=== PATIENT | male | born 1975 | race Caucasian/White ===

== ENCOUNTER 2023-11-11 07:11 | Emergency (ER) | payer SELFPAY ==
[2023-11-11 07:11] VITALS: BP 134/91; PULSE 137; RESP 22; TEMP 35.9; O2SAT 97; BMI 31.7
--- NOTE | 2023-11-11 07:20 | CT_ITS ---
ACR Level 3 findings have been noted. An addendum which confirms receipt of the report will follow. HISTORY: diffuse abdominal pain. TECHNIQUE: Helically acquired images were obtained of the abdomen and pelvis after the intravenous administration of 100 mL Isovue-370. A radiation dose optimization technique was used for this scan. 444 images. COMPARISON: None. FINDINGS: LOWER CHEST: Dependent atelectasis with mild left pleural effusion. 6 mm right lower lobe juxtapleural nodule. Fleischner Society Guidelines suggest no follow-up is necessary for patients with a low or high risk of malignancy. BOWEL: Small diverticulum of the horizontal portion of the duodenum. Bowel including appendix nondilated. Colonic diverticulosis with limited evaluation for mild acute diverticulitis. Generalized abdominal edema. PERITONEUM: Mild ascites with mesenteric edema. LIVER: Mild fatty infiltration. GALLBLADDER/BILIARY TREE: 1-2 mm calcified gallstones. SPLEEN: Homogeneous and nonenlarged. PANCREAS: Severe peripancreatic edema with approximately 50% of the distal body and tail enlarged and nonenhancing. No organized peripancreatic fluid collection. 8 mm filling defect in the splenic vein. 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 Mild hyperdensity in the distal pancreatic bed, which may represent hemorrhage. KIDNEYS: Subcentimeter cysts bilaterally. 2 mm right lower pole calculus. 2 to 3 mm left renal calculi. No hydronephrosis. ADRENAL GLANDS: No nodules. VESSELS: No abdominal aortic ectasia. Mild atherosclerosis. Small retroperitoneal lymph nodes. PELVIC ORGANS: Mild prostate calcifications. ABDOMINAL WALL: Small fat-containing right inguinal hernia. BONES: Intact. 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 Mild ascites. Cholelithiasis. Hepatic steatosis. Nonobstructing bilateral renal calculi. Electronically Signed: Nori aT MD at 9:01 EDT ,
--- NOTE | 2023-11-11 07:22 | ED.VIS.GI ---
HPI HPI - GI History of Present Illness Chief Complaint: Abd Pain Informant: patient Abdominal Pain/Flank Pain Onset: Today and Yesterday Context: Gradual Onset Timing: Continuous Quality: Aching Location: Diffuse Current Severity: Moderate Maximum Severity: Severe Worsened by: Nothing Relieved by: Nothing Nausea/Vomiting/Emesis GI Symptom: Positive for Nausea and Vomiting Onset: Today and Yesterday Severity: Mild Diarrhea/Melena/Hematochezia GI Symptom: Negative for Diarrhea, Melena or Hematochezia Associated Symptoms Associated Symptoms: Positive for - (Difficulty urinating today.); Negative for Dysuria, Frequency, Hematuria or Urgency Narrative Narrative: 48-year-old male no seen past medical or surgical history. No prior abdominal surgeries. Yesterday morning around 5 AM started having suprapubic abdominal pain now is diffuse. He had nausea and vomiting yesterday and dry heaves today. No fever. No dysuria. No hematuria. No history of BPH. Denies any recent weight loss. Prior similar symptoms: No Recent Illness/Hospitalization: No PFSH PFSH Medical History no medical history no medical history Home Medications ?Medication ?Instructions ?Recorded ?Last Taken ?Type NK 11/11/23 Unknown History Allergy/AdvReac Type Severity Reaction Status Date / Time No Known Allergies Allergy Verified 11/11/23 07:58 Surgical History no surgical history no surgical history Social History Smoking Status: Never smoker ROS ROS ED ROS Narrative Diffuse abdominal pain. Nausea and vomiting. Review of Systems ROS Unobtainable: Denies due to encephalopathy Constitutional Constitutional ED: Denies chills or fever(s) ENT ENT ED: Denies ear pain Cardiovascular Cardiovascular: Denies chest pain Respiratory/Chest Respiratory/Chest: Denies cough or dyspnea Gastrointestinal Gastrointestinal: Reports abdominal pain, nausea and vomiting; Denies constipation, diarrhea or melena Genitourinary Genitourinary ED: Reports other Details: Difficulty urinating today. ; Denies dysuria or hematuria Musculoskeletal Musculoskeletal: Denies arthralgias Integumentary Denies abscess or Abrasions Neurologic Neurologic: Denies headache(s) Psychiatric Psychiatric: Denies anxiety Endocrine Endocrinology: Denies polydipsia Hematologic/Lymphatic Hematologic/Lymphatic: Denies easy bleeding Allergic/Immunologic Allergic/Immunologic ED: Denies mouth swelling, tongue swelling or urticaria EXAM Physical Exam Narrative Exam Narrative: 48-year-old male complaining of abdominal pain. Vital signs are stable and he is tachycardic at 137. H EENT exam unremarkable. Missing teeth. Neck nontender no lymphadenopathy. Lungs clear to auscultation bilaterally. Heart regular rhythm tachycardia by 125. Chest wall and ribs nontender. Abdomen diffusely tender in all quadrants. No localizing tenderness. No hernia or mass. No distention or obstruction. No pulsatile mass. Not specifically tender in the right upper or right lower quadrant but diffusely over the entire abdomen. External exam unremarkable. Circumcised. No inguinal hernias noted. Moving all 4 extremities. Nontender no edema he is awake and alert. Answering questions following commands. No focal motor deficits. Const Vital Signs: 11/11/23 07:11 11/11/23 09:11 Temperature 96.6 F L Temperature Source Temporal Pulse Rate 137 H 98 Respiratory Rate 22 H 18 Blood Pressure 134/91 H 119/89 H Blood Pressure Mean 105 99 Pulse Ox 97 95 Oxygen Delivery Method Room Air Positive well nourished and well developed; Negative for cachectic, contractures or unkempt General Appearance ED: well developed; Negative for unkempt, cachectic, contractures, NAD or pallor Nutritional Appearance: Negative for cachectic HEENT Reports moist mucous membranes; Denies dry mucous membranes normocephalic and atraumatic; Negative for trauma or tenderness Mouth ED: No dry mucous membranes Mouth: No dry mucous membranes Eyes PERRL and EOMs intact bilaterally General Eye ED: Negative for pale conjunctiva or scleral icterus Neck no lymphadenopathy, supple and no JVD General: Negative for tenderness Carotids: Negative for other Lymph Lymphatic: Negative for other Resp normal respiratory effort and clear to auscultation bilaterally Effort and Inspection: Negative for respiratory distress Auscultation: Negative for rales, rhonchi, wheezes, diminished lung sounds or other Cardio regular rhythm, S1 normal heart sound, S2 normal heart sound and no murmurs; Negative for regular rate Rate: tachycardic GI non-distended and no masses; Negative for non-tender Inspection: Negative for abdominal distention Auscultation: normoactive bowel sounds Palpation: soft and tender; Negative for guarding, rigid, hernia, mass, pulsatile mass or rebound tenderness present Back/Spine no CVA tenderness General Back: Negative for CVA tenderness Cervical Spine: Negative for cervical spine tenderness Thoracic Spine / Upper Back: Negative for thoracic spinal tenderness Lumbar Spine / Lower Back: Negative for lumbar spinal tenderness Extremity full ROM General Extremety ED: Negative for edema or tenderness General Extremity: Negative for edema Neuro CN's II-XII intact bilaterally and moves all extremities Sensorium / Orientation: alert, oriented to person, oriented to place and oriented to time; Negative for orientation impaired, confused, lethargic or stuporous Motor Exam: strength 5/5 throughout Psych mental status grossly normal and thought process normal Appearance: Negative for unkempt Attitude: No agitated Mood & Affect: Negative for depressed, anxious or tearful Skin no wounds General Skin Exam: Negative for jaundice or pallor Lesions: no lesions Rashes: no rashes Trauma: Negative for abrasion Nails: Negative for discolored MDM MDM MDM Narrative Medical decision making narrative: 48-year-old male vital signs are stable he is afebrile and his tachycardia. Complaint diffuse abdominal pain difficulty urinating. This could be urinary retention versus many other causes of abdominal pain. CAT scan labs to be obtained. Bladder scan. He will receive IV morphine for pain and Zofran for nausea. Patient initially treated with morphine and Zofran related and cover his pain. He was then given Dilaudid his pain is improving on repeat exam at 9:30 AM. I discussed all the test results with both he and his . I spoke to our hospitalist given the patient's CAT scan shows necrotizing pancreatitis may or may not be secondary to gallstone pancreatitis. Also small amount of blood which is most likely from a necrotizing pancreatitis but they could not rule out from the splenic artery aneurysm they wanted him transferred. I have already spoken to [facility] transfer line I am awaiting them to okayed the transfer but they thought it would be possible to get him transferred today. Patient and his are aware of his diagnosis and need for transfer. He is stable. And his pain is improving with the Dilaudid. History & Record Review Discussion w/independent historian: Patient and Family Additional record(s) reviewed:: No prior records Lab Data Attestation: I reviewed the patient's lab results. Lab results narrative: CBC shows an elevated white count 22.9. H&H 18.6 and 54. Platelets 240. Electrolytes show gap 10. BUN 28 creatinine 1.58 with renal insufficiency. Glucose 195. Liver enzymes are mildly elevated with a total bilirubin 1.5. AST is 75. ALT 141. Alk phos is normal. Lipase is elevated at 1789 consistent with acute pancreatitis. Consistent with the CAT scan findings. Labs: Laboratory Results - last 24 hr 11/11/23 07:26 WBC 22.9 H RBC 6.26 H Hgb 18.6 H* Hct 54.6 H MCV 87.2 MCH 29.7 MCHC 34.1 RDW Std Deviation 41.6 RDW Coeff of Fabrice 13.1 Plt Count 240 MPV 9.3 Immature Gran % (Auto) 0.400 Neut % (Auto) 90.7 H Lymph % (Auto) 3.7 L [place] % (Auto) 4.9 Eos % (Auto) 0.0 Baso % (Auto) 0.3 Absolute Neuts (auto) 20.8 H Absolute Lymphs (auto) 0.85 Nucleated RBC % 0 Differential Comment SCANNED Diff Path Review May foll Sodium 136 Potassium 3.5 Chloride 100 Carbon Dioxide 26.0 Anion Gap 10 BUN 28 H Creatinine 1.58 H Estim Creat Clear Calc 63.13 Est GFR (MDRD) Af Amer 61 Est GFR (MDRD) Non-Af 50 L BUN/Creatinine Ratio 17.7 Glucose 195 H Calcium 8.0 L Total Bilirubin 1.50 H AST 75 H ALT 141 H Alkaline Phosphatase 103 Total Protein 7.1 Albumin 3.4 Globulin 3.7 Albumin/Globulin Ratio 0.9 Lipase 1789 H Radiography Diagnostic Testing: Clinical Impression(s) from Imaging Studies Abdomen/Pelvis CT 11/11/23 07:20 IMPRESSION: 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 Mild ascites. Cholelithiasis. Hepatic steatosis. Nonobstructing bilateral renal calculi. 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 Mild ascites. Cholelithiasis. Hepatic steatosis. Nonobstructing bilateral renal calculi. N.B. : Librado Jacobs MD, confirmed on 11/11/2023 09:05:03 (ET) that the healthcare facility has received the radiology report. Electronically Signed: Nori Ta MD at 9:01 EDT , Critical Care Time Critical Care Time: Yes Critical care time (excluding procedures): 30-74 minutes, Including time spent:, Discussing w/Patient &/or Family/Laboratory Equipment Installer, Discussing w/Consultants, Arranging Admission or Transfer, Performing Direct Patient Care at Bedside and - (35 minutes.) Discharge Plan Triage Chief Complaint: Abd Pain ED Provider: Librado Jacobs Dx/Rx/DC Orders Clinical Impression: Abdominal pain, Acute pancreatitis, Gallstones, Aneurysm of splenic artery, Hemorrhage intraabdominal, Leukocytosis Prescriptions: No Action NK Primary Care Provider: Care Physician,No Primary Referrals: NOT,DEFINED [Non-Staff] - Print Language: Macanese Disposition Disposition: Acute Care [facility]
[2023-11-11] MEDS: morphine 8 MG/ML Syringe IV (07:25)
[2023-11-11] MEDS: Ondansetron 4 MG/2 ML Vial IV (07:25)
[2023-11-11 07:33] LABS: Absolute Lymphocyte Count 0.85 X10^3/uL (0.83-4.51); Absolute Neutrophil Count 20.8 X10^3/uL (2.0-7.7); Basophil# 0.07 X10^3/uL; Basophil% 0.3 % (0-1); Hematocrit 54.6 % (40-54); Hemoglobin 18.6 g/dL (13.0-16.5); Lymphocyte # 0.85 X10^3/ul (0.83-4.51); Lymphocyte % 3.7 % (19-41); Mean Corpuscular Hgb 29.7 pg (27.0-32.0); Mean Corpuscular Volume 87.2 fL (80-94); Mean Platelet Vol. 9.3 fl (6.2-12.0); Monocyte# 1.12 X10^3/uL; Monocyte% 4.9 % (0-10); NRBC Flagged by Analyzer 0 % (0-5); Neutrophil % 90.7 % (47-70); POSITIVE DIFFERENTIAL YES; Platelet Count 240 K/mm3 (150-450); RBC Distribution Width CV 13.1 % (11.6-14.6); RBC Distribution Width SD 41.6 fl (35.1-43.9); Red Blood Count 6.26 M/mm3 (4.6-6.2); White Blood Count 22.9 K/mm3 (4.4-11.0)
[2023-11-11 07:38] LABS: Differential Indicated SCAN CRITERIA MET; Mean Corp Hgb Conc 34.1 g/dL (32-36)
[2023-11-11 07:54] LABS: ALB/GLOB Ratio 0.9 RATIO (0.9-2.4); AST(SGOT) 75 U/L (15-37); Alanine Aminotransfer ALT/SGPT 141 U/L (16-61); Albumin, Serum 3.4 g/dL (3.2-5.0); Alkaline Phosphatase 103 U/L (45-117); Anion Gap 10 (5-15); BUN 28 mg/dL (7-18); BUN/Creat Ratio 17.7 RATIO (10-20); Chloride 100 mmol/L (98-107); Creatinine, Serum 1.58 mg/dL (0.70-1.30); EST Glomerular Filtration Rate 50 mL/min (>60); Est Glom Filt Rate - Afr Amer 61 mL/min (>60); Estimated Creatinine Clearance 63.13 ml/min; Globulin 3.7 g/dL (2.2-4.2); Glucose 195 mg/dL (74-106); Lipase 1789 U/L (13-75); Potassium 3.5 mmol/L (3.5-5.1); Protein, Total 7.1 g/dL (6.4-8.2); Sodium Level 136 mmol/L (136-145)
[2023-11-11] MEDS: 0.9% Normal Saline (1000mL) 1,000 ML 999 ML IV (07:57)
[2023-11-11 08:15] LABS: Differential Comment SCANNED
[2023-11-11] MEDS: HYDROmorphone 1 MG/ML Syringe IV (09:06)
[2023-11-11 09:11] VITALS: BP 119/89; PULSE 98; RESP 18; O2SAT 95
[2023-11-11 09:42] LABS: Bacteria 0 SEEN /hpf (None Seen); Mucous, Urine 0 SEEN /hpf (<or=2+); Red Blood Cells-Urine 0 SEEN /hpf (0-5); Squamous Epithelial Cells - UA 0 SEEN /hpf (0-5)
[2023-11-11 10:10] LABS: Color, Urine Yellow (Yellow); Glucose, Dipstick Normal (Normal); Ketone-Dipstick Negative (Negative); Leukocyte Esterase-Dipstick 25 /ul (Negative); Nitrite-Dipstick Negative (Negative); Occult Blood-Urine 10 /ul (Negative); Protein-Dipstick 30 mg/dl (Negative); Urine Bilirubin Dipstick Negative (Negative); Urine Clarity Clear (Clear); Urine Urobilinogen 1 mg/dl (Normal)
[2023-11-11 10:37] LABS: White Blood Cells 0-5 SEEN /hpf (0-5)
[2023-11-11 10:59] VITALS: BP 138/96; PULSE 103; RESP 18; TEMP 36.7; O2SAT 96
[2023-11-11 11:00] VITALS: BP 119/95; PULSE 103; RESP 18; O2SAT 98
[2023-11-11] MEDS: HYDROmorphone 0.5 MG/0.5 ML SYRINGE IV (11:05)
[2023-11-13 16:19] LABS: Pathologist Review Reviewed
== END 2023-11-11 11:10 | disposition short-term general hospital (02) ==
PROVIDERS: Emergency Provider Emergency Medicine; Visit Provider Emergency Medicine
DX: K85.90 Acute pancreatitis without necrosis or infection, unspecified (principal); I72.8 Aneurysm of other specified arteries; D72.829 Elevated white blood cell count, unspecified; K80.20 Calculus of gallbladder without cholecystitis without obstruction; R58 Hemorrhage, not elsewhere classified; R18.8 Other ascites; K76.0 Fatty (change of) liver, not elsewhere classified; N20.0 Calculus of kidney
CPT/HCPCS: 74177; 80053; 81001; 83690; 85025; 96361; 96374; 96375; 96376; 99284; J7030; Q9967; A4216; J2405